=== PATIENT | female | born 1975 | race Caucasian/White ===

== ENCOUNTER 2018-07-16 06:21 | Emergency (ER) | payer OTHER ==
[2018-07-16 06:50] VITALS: BP 150/92; PULSE 90; TEMP 98.6; BMI 25.8
--- NOTE | 2018-07-16 07:49 | PDOC ---
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 On Friday, she reports that "50 pounds" of trays fell onto her right shoulder. She has had severe pain and limited range of motion since then, although she has continued to work. Her pain is unrelieved by Advil, Tylenol, and ice. Vital signs on arrival are notable for HTN: BP 150/92. PCP is Dr. Belcher. REVIEW OF SYSTEMS: GENERAL/CONSTITUTIONAL: No fever or chills. No weakness. No weight change. MUSCULOSKELETAL: See HPI. SKIN: No rash or easy bruising. NEUROLOGIC: No headache, vertigo, loss of consciousness, or loss of sensation. HEMATOLOGIC/LYMPHATIC: No anemia, easy bleeding, or history of blood clots. ALLERGIC/IMMUNOLOGIC: No hives or skin allergy. No latex allergy. PHYSICAL EXAM: GENERAL: The patient is awake, alert, and fully oriented, in no acute distress. LUNGS: Clear to auscultation bilaterally. Normal excursion. No respiratory distress or use of accessory muscles. CV: RRR, S1/S2, no MRG. Cap refill < 2 sec. ABDOMEN: Soft, non-distended, non-tender. EXTREMITIES: Holding right arm. Pain with elevation or abduction of right arm limiting ROM. Right scapular tenderness. NEUROLOGICAL: Normal speech, normal gait. CN II-XII grossly intact. PSYCH: Normal mood, normal affect. SKIN: Warm, dry, normal turgor, no rashes or lesions noted. <Faby Steele - Last Filed: 07/16/18 10:47> - General Chief Complaint: Pain, Acute Stated Complaint: RIGHT ARM PAIN Time Seen by Provider: 07/16/18 07:22 Past History <Brandy Glez - Last Filed: 07/16/18 10:38> - Past Medical History Anemia: No Asthma: No Cancer: No Cardiac Disorders: No CVA: No COPD: No CHF: No Dementia: No Diabetes: No GI Disorders: No Disorders: No HTN: No Hypercholesterolemia: No Kidney Stones: Yes Liver Disease: No Seizures: No Thyroid Disease: No - Surgical History Abdominal Surgery: No Appendectomy: No Cardiac Surgery: No Cholecystectomy: Yes Lung Surgery: No Neurologic Surgery: No Orthopedic Surgery: No - Immunization History Immunization Up to Date: Yes - Suicide/Smoking/Psychosocial Hx Smoking Status: Yes Smoking History: Current every day smoker Have you smoked in the past 12 months: Yes Number of Cigarettes Smoked Daily: 3 Information on smoking cessation initiated: No 'Breaking Loose' booklet given: 04/11/14 Hx Alcohol Use: No Drug/Substance Use Hx: No Substance Use Type: None Hx Substance Use Treatment: No <Faby Steele - Last Filed: 07/16/18 10:47> - Past Medical History Allergies/Adverse Reactions: Allergies Allergy/AdvReac Type Severity Reaction Status Date / Time No Known Drug Allergies Allergy Verified 07/16/18 06:49 Home Medications: Ambulatory Orders Tramadol HCl/Acetaminophen [Ultracet Tablet] 1 each PO Q6H PRN #20 tablet MDD 4 07/16/18 *Physical Exam - Vital Signs Last Vital Signs Temp Pulse Resp BP Pulse Ox 98.6 F 90 20 150/92 99 07/16/18 06:25 07/16/18 06:25 07/16/18 06:25 07/16/18 06:25 07/16/18 06:25 <Brandy Glez - Last Filed: 07/16/18 10:38> - Vital Signs Last Vital Signs Temp Pulse Resp BP Pulse Ox 98.6 F 90 20 150/92 99 07/16/18 06:25 07/16/18 06:25 07/16/18 06:25 07/16/18 06:25 07/16/18 06:25 <Faby Steele - Last Filed: 07/16/18 10:47> ED Treatment Course - Medications Given in the ED: ED Medications Discontinued Medications Generic Name Dose Route Start Last Admin Trade Name Freq PRN Reason Stop Dose Admin Ketorolac Tromethamine 30 mg 07/16/18 08:18 07/16/18 08:26 Toradol Injection - IM 07/16/18 08:19 30 mg ONCE ONE Administration Oxycodone/Acetaminophen 1 combo 07/16/18 10:00 07/16/18 10:03 Percocet 5/325 - PO 07/16/18 10:01 1 combo ONCE ONE Administration <Brandy Glez - Last Filed: 07/16/18 10:38> Medical Decision Making - Medical Decision Making The patient was seen and evaluated in conjunction with midlevel provider under my direct supervision, ancillary studies were reviewed. I agree with the plan as outlined by PROPERTY ANALYST Ivette 43 YOF with right shoulder pain, s/p trays falling against her shoulder NVI. vitals with mild HTN, otherwise f/u primary doctor as it needs recheck XR shoulder with normal alignment, AC joint intact, no clavicle or prox humerus fx contusion/sprain likely, sling for comfort, ROM exercises. OTC pain control as needed. encourage motion and phys activity. DC in stable condition. PCP followup 07/16/18 10:38 <AmarisMylesBrandy Susanrolando - Last Filed: 07/16/18 10:38> - Medical Decision Making 07/16/18 09:45 A/P: 43-year-old female with right shoulder injury. -Xray shoulder 3 views r/o fx, dislocation -Toradol 30mg IM for pain Patient reports pain "tolerable" after Toradol. <Faby Steele - Last Filed: 07/16/18 10:47> *DC/Admit/Observation/Transfer <GlezMylesBrandydevan So - Last Filed: 07/16/18 10:38> - Discharge Dispostion Decision to Admit order: No <Faby Steele - Last Filed: 07/16/18 10:47> Diagnosis at time of Disposition: Shoulder injury Qualifiers: Encounter type: initial encounter Laterality: right Qualified Code(s): S49.91XA - Unspecified injury of right shoulder and upper arm, initial encounter - Discharge Dispostion Disposition: HOME Condition at time of disposition: Stable - Prescriptions Prescriptions: Tramadol HCl/Acetaminophen [Ultracet Tablet] 1 each PO Q6H PRN #20 tablet MDD 4 PRN Reason: Severe Pain - Referrals Referrals: Gissel Muñoz MD [Primary Care Provider] - Jason Ji MD [Staff Physician] - 14 days (Orthopedics - if not improving) - Patient Instructions Printed Discharge Instructions: How to Use a Sling, DI for Shoulder Sprain Additional Instructions: -Use the sling provided, but be sure to take your arm out of the sling and stretch gently every day to prevent frozen shoulder -Take ibuprofen 600mg (3 tablets) every 6 hours with food for no more than one week -Take Tramadol as prescribed for severe breakthrough pain -Follow up with orthopedics if not improving (referral enclosed) -Follow up with your primary care doctor to re-check your blood pressure, which was elevated today -Return here for uncontrolled pain or any other concerning symptoms - Post Discharge Activity Forms/Work/School Notes: Back to Work
[2018-07-16] MEDS ORDERED: KETOROLAC TROMETHAMINE 30 MG/1 ML VIAL IM ONE (08:18)
[2018-07-16] MEDS ORDERED: KETOROLAC TROMETHAMINE 30 MG/1 ML VIAL ONE (08:20)
== END 2018-07-16 10:52 | disposition home or self-care (01) ==
LOC: JER 06:21
PROC: 3E0333Z Introduction of Anti-inflammatory into Peripheral Vein, Percutaneous Approach (ICD-10-PCS; principal; 2018-07-16)
DX: S49.91XA Unspecified injury of right shoulder and upper arm, initial encounter (principal); W20.8XXA Other cause of strike by thrown, projected or falling object, initial encounter; Y93.89 Activity, other specified; Y92.233 Cafeteria of hospital as the place of occurrence of the external cause; Y99.0 Civilian activity done for income or pay; I10 Essential (primary) hypertension
CPT/HCPCS: 73030-TC-RT-FY; 99282-25

== ENCOUNTER 2019-08-09 22:58 | Emergency (ER) | payer OTHER ==
[2019-08-09 23:13] VITALS: TEMP 98.2; BMI 29.8
[2019-08-09] MEDS ORDERED: SODIUM CHLORIDE 1,000 ML IV STA (23:33)
[2019-08-09 23:43] LABS: BASO % 0.5 % (0-2.0); EOS % 3.9 % (0-4.5); HEMATOCRIT 45.1 % (32.4-45.2); HEMOGLOBIN 15.6 GM/dL (10.7-15.3); LYMPH % 31.2 % (8-40); MCH 32.1 pg (25.7-33.7); MCHC 34.5 g/dl (32.0-36.0); MEAN PLT VOLUME 8.1 fl (7.5-11.1); MONO % 6.2 % (3.8-10.2); NEUT % 58.2 % (42.8-82.8); PLATELET COUNT 351 K/MM3 (134-434); RBC 4.85 M/mm3 (3.60-5.2); WHITE BLOOD COUNT 10.1 K/mm3 (4.0-10.0)
[2019-08-09] MEDS ORDERED: ALBUTEROL SO4 2.5/IPRATROPIUM 0.5 INH SOL 3 ML VIAL.NEB. NEB ONE (23:43)
--- NOTE | 2019-08-09 23:45 | PDOC ---
History of Present Illness - General Chief Complaint: Shortness of Breath Stated Complaint: COUGH/SOB Time Seen by Provider: 08/09/19 23:16 - History of Present Illness Initial Comments: 08/09/19 23:48 44 yo F PMH hysterectomy, anxiety, cholecystectomy, p/w CP and SOB. States that she received the flu shot about a week ago, and then was bedbound for 4 days with generalized malaise, sinus congestion, and non-productive cough. She was out eating dinner and then dancing with her daughter when she developed R sided chest pain, similar in quality to intermittent CP she had been experiencing for months but much more intense, "feels like my ribs are broken and it is stabbing my lung", associated with severe cough and nausea without vomiting. Patient also complains that her lower extremities have been slightly swollen over the last week, R worse than L, and has also been having numbness and tingling in her toes. She presents pulse ox of 96% on room air, tachycardic at 125 bpm, BP 125/86. Past History - Past Medical History Allergies/Adverse Reactions: Allergies Allergy/AdvReac Type Severity Reaction Status Date / Time aspirin Allergy Severe Difficulty Verified 08/10/19 00:54 Breathing Home Medications: Ambulatory Orders Tramadol HCl/Acetaminophen [Ultracet Tablet] 1 each PO Q6H PRN #20 tablet MDD 4 07/16/18 Anemia: No Asthma: No Cancer: No Cardiac Disorders: No CVA: No COPD: No CHF: No Dementia: No Diabetes: No GI Disorders: No Disorders: No HTN: No Hypercholesterolemia: No Kidney Stones: Yes Liver Disease: No Seizures: No Thyroid Disease: No - Surgical History Abdominal Surgery: No Appendectomy: No Cardiac Surgery: No Cholecystectomy: Yes Lung Surgery: No Neurologic Surgery: No Orthopedic Surgery: No - Immunization History Immunization Up to Date: Yes - Psycho Social/Smoking Cessation Hx Smoking Status: Yes Smoking History: Current every day smoker Have you smoked in the past 12 months: Yes Number of Cigarettes Smoked Daily: 3 Information on smoking cessation initiated: No 'Breaking Loose' booklet given: 04/11/14 Hx Alcohol Use: Yes Drug/Substance Use Hx: No Substance Use Type: None Hx Substance Use Treatment: No Review of Systems - Review of Systems Constitutional: Yes: Malaise. No: Chills, Diaphoresis, Fever HEENTM: Yes: Nose Congestion. No: Recent change in vision, Double Vision, Throat Pain, Difficulty Swallowing Respiratory: Yes: Cough, Shortness of Breath. No: Wheezing Cardiac (ROS): Yes: Chest Pain (R sided). No: Edema, Irregular Heart Rate ABD/GI: Yes: Nausea. No: Constipated, Diarrhea, Vomiting : No: Burning, Dysuria, Discharge, Frequency, Flank Pain Musculoskeletal: No: Back Pain, Muscle Weakness Neurological: No: Headache, Numbness, Tingling *Physical Exam - Vital Signs Last Vital Signs Temp Pulse Resp BP Pulse Ox 98.2 F 132 H 29 H 218/188 H 100 08/09/19 23:02 08/09/19 23:02 08/09/19 23:02 08/09/19 23:02 08/09/19 23:02 - Physical Exam Comments: 08/10/19 00:51 Gen: well-developed, well-nourished, appears distressed, coughing extremely hard Neuro: AAOX4, CN II-XII intact, FTN intact, EOMI, PERRLA HEENT: atraumatic, normocephalic, dry mucous membranes Neck: trachea midline, supple CV: tachycardic, regular rhythm, no murmurs, rubs, or gallops Pulm: tachypneic, CTA b/l, no wheezing Abd: soft, non-distended, non-tender MSK: full ROM, intact pulses Extr: no edema, no deformities Skin: warm, dry ED Treatment Course - LABORATORY CBC & Chemistry Diagram: 08/09/19 23:30 08/09/19 23:30 - ADDITIONAL ORDERS Additional order review: 08/09/19 23:30 RBC 4.85 MCV 93.0 MCHC 34.5 RDW 13.0 MPV 8.1 Neutrophils % 58.2 Lymphocytes % 31.2 D Monocytes % 6.2 Eosinophils % 3.9 Basophils % 0.5 Medical Decision Making - Medical Decision Making 08/10/19 00:47 Concern for potential PE vs anxiety attack. - CBC, CMP, mag - CXR port, trop - EKG sinus tachycardia at 118bpm - UA/UC - BNP - coags - lipase - CTA chest for r/o PE - reassess 08/10/19 02:11 CTA negative for PE. Will give 0.5 mg Xanax, reassess. 08/10/19 02:51 Patient much improved, likely had a panic attack. Discussed getting in touch with her primary care doctor and a psychiatrist as soon as possible. Will dc home. Discharge - Discharge Information Problems reviewed: Yes Clinical Impression/Diagnosis: Anxiety Condition: Improved Disposition: HOME - Follow up/Referral Referrals: Bianca Belcher MD [Primary Care Provider] - - Patient Discharge Instructions Patient Printed Discharge Instructions: DI for Anxiety -- Adult Additional Instructions: You were seen with chest pain and shortness of breath. Your EKG and labs were unremarkable, and your CTA of your chest did not show a clot in your lungs. Your symptoms responded after receiving Xanax. You most likely had a panic attack. It is very important that you follow up with your primary care physician. Make an appointment within 1 week, and make sure they can get you in touch with a psychiatrist. Return to the ED if you develop worsening symptoms. - Post Discharge Activity Work/Back to School Note: Back to Work
[2019-08-09 23:56] LABS: INR 0.95 (0.83-1.09); PROTHROMBIN TIME (PATIENT) 11.2 SEC (9.7-13.0)
[2019-08-09] MEDS ORDERED: ACETAMINOPHEN 1000 MG/100 ML VIAL (NON FORMULARY) IVPB ONE (23:57)
[2019-08-10] LABS: URINE APPEARANCE CLEAR; URINE BILIRUBIN NEGATIVE (NEGATIVE); URINE COLOR YELLOW; URINE GLUCOSE (UA) NEGATIVE (NEGATIVE); URINE KETONE NEGATIVE (NEGATIVE); URINE LEUK ESTERASE NEGATIVE (NEGATIVE); URINE NITRITE NEGATIVE (NEGATIVE); URINE PROTEIN NEGATIVE (NEGATIVE); URINE UROBILINOGEN 0.2 mg/dL (0.2-1.0)
[2019-08-10 00:05] LABS: BILIRUBIN,TOTAL 0.3 mg/dL (0.2-1); BLOOD UREA NITROGEN 10.4 mg/dL (7-18); CALCIUM 8.8 mg/dL (8.5-10.1); CREATININE 0.8 mg/dL (0.55-1.3); POTASSIUM 4.4 mmol/L (3.5-5.1); TOT PROT 7.3 g/dl (6.4-8.2)
[2019-08-10] MEDS ORDERED: MORPHINE SULFATE 2 MG/ML VIAL ONE ×2 (00:34→01:04)
[2019-08-10 00:36] LABS: N-TERMINAL BNP 26.2 pg/ml (5-125)
[2019-08-10] MEDS ORDERED: MORPHINE SULFATE 2 MG/ML VIAL IVPUSH ONE (01:01)
[2019-08-10] MEDS ORDERED: morphine CARPU-JECT 4 MG/1 ML DISP.SYRIN IVPUSH ONE (01:03)
[2019-08-10 01:07] LABS: LIPASE 164 U/L (73-393)
[2019-08-10] MEDS ORDERED: ALPRAZolam 1 MG TABLET PO PRN ×2 (02:12→02:22)
--- NOTE | 2019-08-10 02:17 | PDOC ---
Documentation entered by Erika Zuñiga SCRIBE, acting as scribe for Jolanta Lozano MD. Jolatna Lozano MD: This documentation has been prepared by the ninaibe, Erika Zuñiga SCRIBE, under my direction and personally reviewed by me in its entirety. I confirm that the documentation accurately reflects all work, treatment, procedures, and medical decision making performed by me. Attending Attestation - Resident Resident Name: Rosina Gomez - ED Attending Attestation I have performed the following: I have examined & evaluated the patient, The case was reviewed & discussed with the resident, I agree w/resident's findings & plan, Exceptions are as noted - HPI HPI: 08/09/19 23:21 44-year-old female presents with chest pain and shortness of breath. She says she got the flu shot and then was bedbound for 4 days with cough and shortness of breath. She presents pulse ox of 96% on room air, tachycardic at 125 bpm She also states that her lower extremities have been slightly swollen over the last week - Physicial Exam PE: 08/09/19 23:37 44-year-old female presents with tachycardia and cough Head normocephalic atraumatic Neck supple, no JVD no bruits Lungs clear to auscultation bilaterally CVS sinus tachycardia Abdomen protuberant, nontender Skin warm and dry Extremities no pitting edema Neuro alert and oriented x3 patient is ambulating to the bathroom currently - Medical Decision Making 08/10/19 01:02 44 yo female who reports 5-6 days of cough and shortness of breath but she is not hypoxic ekg sinus tachycardia 08/10/19 02:13 Repeat blood pressure was 125/86 CT of the chest was negative for pulmonary embolism negative for any infiltrates , the lungs are clear Her troponin was negative, her CBC was unremarkable Chemistries show normal renal function, normal electrolytes and normal LFTs 08/10/19 02:15 08/10/19 02:16 Patient was having severe coughing spasms that have subsided Impression bronchospasm, URI
[2019-08-10] MEDS ORDERED: ALPRAZolam 0.25 MG TABLET ONE (02:23)
[2019-08-10] MEDS ORDERED: ALPRAZolam 1 MG TABLET PO ONE (02:23)
[2019-08-10 04:22] VITALS: BP 131/84; PULSE 96
--- NOTE | 2019-08-10 12:51 | EKG ---
Test Reason : Blood Pressure : / mmHG Vent. Rate : 113 BPM Atrial Rate : 113 BPM P-R Int : 148 ms QRS Dur : 074 ms QT Int : 328 ms P-R-T Axes : 067 050 054 degrees QTc Int : 449 ms POOR DATA QUALITY, INTERPRETATION MAY BE ADVERSELY AFFECTED SINUS TACHYCARDIA POSSIBLE LEFT ATRIAL ENLARGEMENT BORDERLINE ECG WHEN COMPARED WITH ECG OF 11-APR-2014 04:58, VENT. RATE HAS INCREASED BY 58 BPM Confirmed by Sunday Doshi MD ([id number]) on 08/10/2019 12:51:27 PM Referred By: Confirmed By:Sunday Doshi MD
== END 2019-08-10 03:05 | disposition home or self-care (01) ==
LOC: JER 22:58
PROC: 3E0F7GC Introduction of Other Therapeutic Substance into Respiratory Tract, Via Natural or Artificial Opening (ICD-10-PCS; principal; 2019-08-09)
PROC: 3E033NZ Introduction of Analgesics, Hypnotics, Sedatives into Peripheral Vein, Percutaneous Approach (ICD-10-PCS; 2019-08-09)
DX: J98.01 Acute bronchospasm (principal); J06.9 Acute upper respiratory infection, unspecified; Z88.6 Allergy status to analgesic agent; F41.9 Anxiety disorder, unspecified; Z90.49 Acquired absence of other specified parts of digestive tract; Z90.79 Acquired absence of other genital organ(s); Z87.442 Personal history of urinary calculi
CPT/HCPCS: 36415; 71045-TC-FY; 71275-TC; 80053; 81003; 82550; 83690; 83735; 83880; 84484; 85025; 85610; 87086; 93005; 93010; 99283-25; J7030

== ENCOUNTER 2019-08-10 08:31 | Emergency (ER) | payer OTHER ==
[2019-08-10 08:45] VITALS: TEMP 98.7; BMI 27.4
[2019-08-10] MEDS ORDERED: SODIUM CHLORIDE 1,000 ML IV STA (09:30)
[2019-08-10] MEDS ORDERED: morphine CARPU-JECT 4 MG/1 ML DISP.SYRIN IVPUSH ONE (09:31)
--- NOTE | 2019-08-10 09:45 | PDOC ---
History of Present Illness - General Chief Complaint: Pain Stated Complaint: COUGH/ SOB Time Seen by Provider: 08/10/19 09:18 History Source: Patient Exam Limitations: No Limitations - History of Present Illness Initial Comments: 08/10/19 09:45 Patient is a 44F with history of hysterectomy, anxiety, cholecystectomy here today complaining of pain to her right lower chest that onset yesterday after dancing with her daughter at a restaurant. Patient states this pain is worse with inspiration and coughing. She states that she's been coughing with shortness of breath for the past week after getting a flu shot. Endorses associated subjective fevers and chills. Denies nausea and vomiting. Denies headache, neck pain. Denies abdominal pain, dysuria. Endorses tingling in her hands and feet. Patient was evaluated in the ED yesterday for the same complaint. EKG, CTA, CXR , Labs were all reassuring. Patient was diagnosed with anxiety after symptoms improved after getting xanax. Past History - Past Medical History Allergies/Adverse Reactions: Allergies Allergy/AdvReac Type Severity Reaction Status Date / Time aspirin Allergy Severe Difficulty Verified 08/10/19 08:40 Breathing Home Medications: Ambulatory Orders Tramadol HCl/Acetaminophen [Ultracet Tablet] 1 each PO Q6H PRN #20 tablet MDD 4 07/16/18 Anemia: No Asthma: No Cancer: No Cardiac Disorders: No CVA: No COPD: No CHF: No Dementia: No Diabetes: No GI Disorders: No Disorders: No HTN: No Hypercholesterolemia: No Kidney Stones: Yes Liver Disease: No Seizures: No Thyroid Disease: No - Surgical History Abdominal Surgery: No Appendectomy: No Cardiac Surgery: No Cholecystectomy: Yes Lung Surgery: No Neurologic Surgery: No Orthopedic Surgery: No - Immunization History Immunization Up to Date: Yes - Psycho Social/Smoking Cessation Hx Smoking Status: Yes Smoking History: Current every day smoker Have you smoked in the past 12 months: Yes Number of Cigarettes Smoked Daily: 3 Information on smoking cessation initiated: No 'Breaking Loose' booklet given: 04/11/14 Hx Alcohol Use: No Drug/Substance Use Hx: No Substance Use Type: None Hx Substance Use Treatment: No Review of Systems - Review of Systems Able to Perform ROS?: Yes Comments:: 08/10/19 09:56 GENERAL/CONSTITUTIONAL: + fever +chills. No weakness. HEAD, EYES, EARS, NOSE AND THROAT: No change in vision. No sore throat. CARDIOVASCULAR: +chest pain +shortness of breath RESPIRATORY: No cough, wheezing, or hemoptysis. GASTROINTESTINAL: No nausea, vomiting, diarrhea or constipation. GENITOURINARY: No dysuria, frequency, or change in urination. MUSCULOSKELETAL: No joint or muscle swelling or pain. No neck or back pain. SKIN: No rash NEUROLOGIC: No headache, vertigo, loss of consciousness, or change in strength/ sensation. HEMATOLOGIC/LYMPHATIC: No anemia, easy bleeding, or history of blood clots. ALLERGIC/IMMUNOLOGIC: No hives or skin allergy. *Physical Exam - Vital Signs Last Vital Signs Temp Pulse Resp BP Pulse Ox 98.7 F 103 H 26 H 116/77 98 08/10/19 08:41 08/10/19 08:41 08/10/19 08:41 08/10/19 08:41 08/10/19 08:41 - Physical Exam Comments: 08/10/19 09:57 GENERAL: Awake, alert, and fully oriented CHEST: Tender to palpation along lower ribs on right side, no visible bruising HEAD: No signs of trauma, normocephalic, atraumatic EYES: PERRLA, EOMI, sclera anicteric, conjunctiva clear ENT: Auricles normal inspection, hearing grossly normal, nares patent, oropharynx clear without exudates. Moist mucosa NECK: Normal ROM, supple, no lymphadenopathy, JVD, or masses LUNGS: No distress, speaks full sentences, clear to auscultation bilaterally HEART: Regular rate and rhythm, normal S1 and S2, no murmurs, rubs or gallops, peripheral pulses normal and equal bilaterally. ABDOMEN: Soft, nontender, normoactive bowel sounds. No guarding, no rebound. No masses EXTREMITIES: Normal inspection, Normal range of motion, no edema. No clubbing or cyanosis. NEUROLOGICAL: Cranial nerves II through XII grossly intact. Normal speech, normal gait, no focal sensorimotor deficits SKIN: Warm, Dry, normal turgor, no rashes or lesions noted. ED Treatment Course - LABORATORY CBC & Chemistry Diagram: 08/10/19 10:40 08/10/19 10:40 - RADIOLOGY Radiology Studies Ordered: Category Date Time Status CHEST PA & LAT [RAD] Stat Radiology 08/10/19 09:30 Ordered Medical Decision Making - Medical Decision Making 08/10/19 09:58 Patient is 44F with history of anxiety, cholecystectomy, hysterectomy here today with chest pain. Vitals notable for tachycardia and tachypnea. Lungs clear. Patient had full work up last night, ruled out PE. Will re-evaluate with cxr, cardiac labs, ekg. Will treat with toradol. 08/10/19 10:47 EKG shows nsr with no st elevation/depression. Normal axis. Normal intervals. One t wave inversion isolated to V3. 08/10/19 12:14 CBC normal CMP normal Troponin negative. CXR normal. Patient reassessed, pain has improved. Patient states that she's ready to go home. Discharge - Discharge Information Problems reviewed: Yes Clinical Impression/Diagnosis: Chest pain Condition: Good Disposition: HOME - Admission No - Follow up/Referral Referrals: Gissel Muñoz MD [Primary Care Provider] - - Patient Discharge Instructions Patient Printed Discharge Instructions: DI for Atypical Chest Pain Additional Instructions: Please follow up with your primary care doctor in the next few days. Please take the naproxen as directed for pain. Your next dose will be due tonight. Please do not take motrin or ibuprofen if you are taking napoxen. Please return to the ED if you have any new, worsening or concerning symptoms, especially fever, increasing pain and shortness of breath. - Post Discharge Activity Work/Back to School Note: Back to Work
--- NOTE | 2019-08-10 10:12 | PDOC ---
Attending Attestation - Resident Resident Name: VasuellenBlake - ED Attending Attestation I have performed the following: I have examined & evaluated the patient, The case was reviewed & discussed with the resident, I agree w/resident's findings & plan, Exceptions are as noted - HPI HPI: 08/10/19 10:10 44yo F hx cholecystectomy, hysterectomy, anxiety p/w 2 weeks of right lower chest pain, worse with movement, inspiration, palpation. Pain has been much worse since last night after she was dancing with her daughter. Pt was seen here for the same, had a PE w/u including CTA which was negative. Pt reports the sxs started in the setting of a cough that began 1.5 weeks ago. Denies associated dizziness, diaphoresis, weakness/numbness, N/V, SOB, abd pain, LE edema. She has been taking advil at home with minimal relief. Pt returned to the ED this morning as she was unable to sleep 2/2 pain. Was given xanax and morphine prior to discharge last night. Denies other trauma. - Physicial Exam PE: 08/10/19 10:40 GENERAL: Awake, alert, and fully oriented, in no acute distress EYES: PERRLA, EOMI, sclera anicteric, conjunctiva clear ENT: Oropharynx clear without exudates. Moist mucosa NECK: Normal ROM, supple, no lymphadenopathy, JVD, or masses LUNGS: Breath sounds equal, clear to auscultation bilaterally. No wheezes, and no crackles HEART: Regular rate and rhythm, normal S1 and S2, no murmurs, rubs or gallops. + ttp along 9th/10th intercostal muscles. No masses palpated around or on breast. ABDOMEN: Soft, nontender, normoactive bowel sounds. No guarding, no rebound. No masses EXTREMITIES: Normal range of motion, no edema. No cords, erythema, or tenderness NEUROLOGICAL: Normal speech, cranial nerves intact, equal stregnth and sensation b/l SKIN: Warm, Dry, normal turgor, no rashes or lesions noted. - Medical Decision Making 08/10/19 10:44 44yo F presents to the ED for 2nd time in 1 day for reproducible, positional rib pain, started in setting of coughing 2 weeks ago, worse after dancing last night. Highly consistent with musculoskeletal pain, rib strain, especially with negative CTA and trop yesterday EKG with no significant changes WIll rpt trop, CXR, and treat pain with toradol. Pt states allergy to ASA is throat closing but has been taking advil almost daily 08/10/19 12:26 Labs wnl Patient is feeling significantly better after Toradol, was able to sleep for 2 hours in the emergency department. She is eager to go home. Will prescribe naproxen for pain control. Discussed with patient the importance of not taking Advil, Motrin, ibuprofen or any other NSAID medications while she is taking naproxen. She is clinically stable for discharge home. I discussed the physical exam findings, ancillary test results and final diagnoses with the patient. I answered all of the patient's questions. The patient was satisfied with the care received and felt comfortable with the discharge plan and treatment plan. The patient will call their primary care physician within 24 hours to arrange follow-up and will return to the Emergency Department with any new, persistent or worsening symptoms. Heart Score/ECG Review #1 08/10/19 10:46 Twelve-lead EKG was performed and reviewed by me. Normal sinus rhythm, rate 77. Normal axis and intervals. No ST elevations. T wave inversions in 3 and V3. When compared to EKG done last night T wave inversion in V3 it is, however this could be due to lead placement. In isolation is not concerning.
[2019-08-10] MEDS ORDERED: KETOROLAC TROMETHAMINE 15 MG/ML VIAL IVPUSH ONE (10:23)
[2019-08-10 10:56] LABS: BASO % 1.2 % (0-2.0); EOS % 2.8 % (0-4.5); HEMATOCRIT 43.4 % (32.4-45.2); HEMOGLOBIN 14.8 GM/dL (10.7-15.3); LYMPH % 18.6 % (8-40); MCH 31.6 pg (25.7-33.7); MCHC 34.1 g/dl (32.0-36.0); MEAN CELL VOLUME 92.9 fl (80-96); MEAN PLT VOLUME 8.1 fl (7.5-11.1); MONO % 6.3 % (3.8-10.2); NEUT % 71.1 % (42.8-82.8); PLATELET COUNT 302 K/MM3 (134-434); RBC 4.67 M/mm3 (3.60-5.2); RDW 13.2 % (11.6-15.6); WHITE BLOOD COUNT 12.3 K/mm3 (4.0-10.0)
[2019-08-10] MEDS ORDERED: KETOROLAC TROMETHAMINE 15 MG/ML VIAL ONE (10:56)
[2019-08-10 11:12] LABS: INR 1.08 (0.83-1.09); PROTHROMBIN TIME (PATIENT) 12.7 SEC (9.7-13.0)
[2019-08-10 11:34] LABS: ALBUMIN 3.7 g/dl (3.4-5.0); BILIRUBIN,TOTAL 0.6 mg/dL (0.2-1); BLOOD UREA NITROGEN 13.2 mg/dL (7-18); CALCIUM 8.5 mg/dL (8.5-10.1); CREATININE 0.6 mg/dL (0.55-1.3); TOT PROT 6.7 g/dl (6.4-8.2)
[2019-08-10 12:57] VITALS: BP 107/72; PULSE 78
--- NOTE | 2019-08-11 11:03 | EKG ---
Test Reason : Blood Pressure : / mmHG Vent. Rate : 081 BPM Atrial Rate : 081 BPM P-R Int : 148 ms QRS Dur : 084 ms QT Int : 402 ms P-R-T Axes : 005 019 008 degrees QTc Int : 466 ms NORMAL SINUS RHYTHM NORMAL ECG WHEN COMPARED WITH ECG OF 09-AUG-2019 23:00, NO SIGNIFICANT CHANGE WAS FOUND Confirmed by CONNIE DÍAZ MD ([id number]) on 08/11/2019 11:03:28 AM Referred By: Confirmed By:CONNIE DÍAZ MD
== END 2019-08-10 12:57 | disposition home or self-care (01) ==
LOC: JER 08:31
PROC: 3E0337Z Introduction of Electrolytic and Water Balance Substance into Peripheral Vein, Percutaneous Approach (ICD-10-PCS; principal; 2019-08-10)
PROC: 3E0333Z Introduction of Anti-inflammatory into Peripheral Vein, Percutaneous Approach (ICD-10-PCS; 2019-08-10)
DX: R07.89 Other chest pain (principal); F41.9 Anxiety disorder, unspecified; Z88.6 Allergy status to analgesic agent; Z90.49 Acquired absence of other specified parts of digestive tract; Z90.79 Acquired absence of other genital organ(s)
CPT/HCPCS: 36415; 71046-TC-FY; 80053; 82550; 82553; 83735; 84484; 85025; 85610; 93005; 93010; 99283-25; J7030

== ENCOUNTER 2020-01-05 07:26 | Emergency (ER) | payer OTHER ==
[2020-01-05 07:39] VITALS: BP 151/100; PULSE 80; TEMP 98; BMI 26.6
--- NOTE | 2020-01-05 08:09 | PDOC ---
History of Present Illness - General Chief Complaint: Ear Problem Stated Complaint: R EAR SWELLING Time Seen by Provider: 01/05/20 07:31 - History of Present Illness Initial Comments: CHIEF COMPLAINT: R ear/neck pain HISTORY OF PRESENT ILLNESS: 44 yo F with no PMH presents to ED with acute onset pain to R ear since this morning. Patient reports hx of "really bad ear infections" when she was younger but does not remember the last time she had one. She describes the pain as a "pain inside the ear, like it's throbbing or tingling" and that the pain radiates down the right side of her face/neck as well. No recent travel or sick contacts. PAST MEDICAL HISTORY: Denies past medical history FAMILY HISTORY: Denies SOCIAL HISTORY: Denies tobacco, alcohol, illicit drug use. SURGICAL HISTORY: Denies ALLERGIES: No known drug allergies REVIEW OF SYSTEMS General/Constitutional: Denies fever or chills. Denies weakness, weight change. HEENT: Right ear/facial/neck pain. Denies change in vision. Denies sore throat. Cardiovascular: Denies chest pain or shortness of breath. Respiratory: Denies cough, wheezing, or hemoptysis. Gastrointestinal: Denies nausea, vomiting, diarrhea or constipation. Denies rectal bleeding. Genitourinary: Denies dysuria, frequency, or change in urination. Musculoskeletal: Denies joint or muscle swelling or pain. Denies neck or back pain. Skin and breasts: Denies rash or easy bruising. Neurologic: Denies headache, vertigo, loss of consciousness, or loss of sensation. Psychiatric: Denies depression or anxiety. PHYSICAL EXAM General Appearance: Well-appearing, appropriately dressed. No apparent distress. HEENT: Erythema and mild swelling to R ear with TTP to mastoid process and along C2 dermatome. EOMI, PERRLA, normal ENT inspection, normal voice, TMs normal, pharynx normal. No conjunctival pallor. No photophobia, scleral icterus. Neck: Supple. Trachea midline. No tenderness, rigidity, carotid bruit, stridor, lymphadenopathy, or thyromegaly. Respiratory/Chest: Lungs CTAB. No shortness of breath, chest tenderness, respiratory distress, accessory muscle use. No crackles, rales, rhonchi, stridor, wheezing, dullness Cardiovascular: RRR. S1, S2. No JVD, murmur, bradycardia, tachycardia. Vascular Pulses: Dorsalis-Pedis (R): 2+, Dorsalis-Pedis (L): 2+ Gastrointestinal/Abdominal: Normal bowel sounds. Abdomen soft, non-distended. No tenderness or rebound tenderness. No organomegaly, pulsatile mass, guarding, hernia, hepatomegaly, splenomegaly. Lymphatic: No adenopathy, tenderness. Musculoskeletal/Extremities: Normal inspection. FROM of all extremities, normal capillary refill. Pelvis Stable. No CVA tenderness. No tenderness to extremities, pedal edema, swelling, erythema or deformity. Integumentary: Appropriate color, dry, warm. 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 Fully oriented, alert. Appropriate mood/affect. Motor strength 5/5. No appreciable EOM palsy, facial droop or sensory deficit. Past History - Past Medical History Allergies/Adverse Reactions: Allergies Allergy/AdvReac Type Severity Reaction Status Date / Time aspirin Allergy Severe Difficulty Verified 01/05/20 07:29 Breathing naproxen [From Aleve] Allergy Verified 01/05/20 07:30 Home Medications: Ambulatory Orders Diclofenac Sodium 75 mg PO BID #20 tablet. 01/05/20 Valacyclovir HCl [Valtrex] 1,000 mg PO TID #21 tablet 01/05/20 Anemia: No Asthma: No Cancer: No Cardiac Disorders: No CVA: No COPD: No CHF: No Dementia: No Diabetes: No GI Disorders: No Disorders: No HTN: No Hypercholesterolemia: No Kidney Stones: Yes Liver Disease: No Seizures: No Thyroid Disease: No - Surgical History Abdominal Surgery: No Appendectomy: No Cardiac Surgery: No Cholecystectomy: Yes Lung Surgery: No Neurologic Surgery: No Orthopedic Surgery: No - Immunization History Immunization Up to Date: Yes - Psycho Social/Smoking Cessation Hx Smoking Status: Yes Smoking History: Unknown if ever smoked Have you smoked in the past 12 months: Yes Number of Cigarettes Smoked Daily: 3 'Breaking Loose' booklet given: 04/11/14 Hx Alcohol Use: No Drug/Substance Use Hx: No Substance Use Type: None Hx Substance Use Treatment: No *Physical Exam - Vital Signs Last Vital Signs Temp Pulse Resp BP Pulse Ox 98 F 80 18 151/100 99 01/05/20 07:30 01/05/20 07:30 01/05/20 07:30 01/05/20 07:30 01/05/20 07:30 ED Treatment Course - RADIOLOGY Radiology Studies Ordered: Category Date Time Status TEMPORAL BONES CT W/O CONTRAST [CT] Stat CT Scan 01/05/20 07:57 Ordered Medical Decision Making - Medical Decision Making 01/05/20 08:09 44 yo F with no PMH presents to ED with acute onset pain to R ear since this morning. Given significant hx of AOM, concern for mastoiditis vs shingles. -temporal bone CT r/o mastoiditis, if negative likely shingles given distribution of pain over single facial dermatome. 01/05/20 10:30 CT negative. Patient c/o that pain has become a very heavy burning sensation to her left ear. Likely shingles. Will dc with Valtrex and pain control. Discharge - Discharge Information Problems reviewed: Yes Clinical Impression/Diagnosis: Shingles Qualifiers: Herpes zoster complications: unspecified herpes zoster complication Qualified Code(s): B02.8 - Zoster with other complications Condition: Stable Disposition: HOME - Admission No - Additional Discharge Information Prescriptions: Diclofenac Sodium 75 mg PO BID #20 tablet. Valacyclovir HCl [Valtrex] 1,000 mg PO TID #21 tablet - Follow up/Referral Referrals: Gissel Muñoz MD [Primary Care Provider] - - Patient Discharge Instructions - Post Discharge Activity Work/Back to School Note: Back to Work
[2020-01-05] MEDS ORDERED: valACYclovir HCL 1000 MG TABLET PO ONE (10:02)
[2020-01-05] MEDS ORDERED: KETOROLAC TROMETHAMINE 30 MG/1 ML VIAL IM ONE (10:05)
[2020-01-05] MEDS ORDERED: KETOROLAC TROMETHAMINE 30 MG/1 ML VIAL ONE (10:50)
[2020-01-05] MEDS ORDERED: valACYclovir HCL 500 MG TABLET (FP) ONE (10:51)
== END 2020-01-05 11:01 | disposition home or self-care (01) ==
LOC: JER 07:26
PROC: 3E0233Z Introduction of Anti-inflammatory into Muscle, Percutaneous Approach (ICD-10-PCS; principal; 2020-01-05)
DX: B02.8 Zoster with other complications (principal); Z88.8 Allergy status to other drugs, medicaments and biological substances
CPT/HCPCS: 70480-TC; 99285-25

== ENCOUNTER 2020-08-04 03:21 | Emergency (ER) | payer OTHER ==
[2020-08-04 03:41] VITALS: TEMP 98.4; BMI 25.9
--- OUTSIDE RECORDS SUMMARY | 2020-08-04 03:44 | XMS ---
:1975 Author Organization [facility] Support Name Relationship Address Phone MONIKA HEAD DAUGHTER [address] [place] [address] [facility] Unavailable [address] [place] [address] DAWIT PRYOR [address] [place] [address] Re-disclosure Warning The records that you are about to access may contain information from federally- assisted alcohol or drug abuse programs. If such information is present, then the following federally mandated warning applies: This information has been disclosed to you from records protected by federal confidentiality rules (42 CFR part 2). The federal rules prohibit you from making any further disclosure of this information unless further disclosure is expressly permitted by the written consent of the person to whom it pertains or as otherwise permitted by 42 CFR part 2. A general authorization for the release of medical or other information is NOT sufficient for this purpose. The Federal rules restrict any use of the information to criminally investigate or prosecute any alcohol or drug abuse patient.The records that you are about to access may contain highly sensitive health information, the redisclosure of which is protected by Article 27-F of the [facility] Public Health law. If you continue you may haveaccess to information: Regarding HIV / AIDS; Provided by facilities licensed or operated by the [facility] Office of Mental Health; or Provided by the [facility] Office for People With Developmental Disabilities. If such information is present, then the following [facility] mandated warning applies: This information has been disclosed to you from confidential records which are protected by state law. State law prohibits you from making any further disclosure of this information without the specific written consent of the person to whom it pertains, or as otherwise permitted by law. Any unauthorized further disclosure in violation of state law may result in a fine or skilled nursing sentence or both. A general authorization for the release of medical or other information is NOT sufficient authorization for further disclosure. Insurance Providers Payer name Policy type Policy ID Covered Covered libertarian's Policy P delvin / Coverage libertarian ID relationship to He Inf ormation type he [facility] [id number] - [id number] [facility]
[2020-08-04] MEDS ORDERED: ACETAMINOPHEN 500 MG TABLET (FP) PO ONE (04:09)
--- NOTE | 2020-08-04 04:17 | PDOC ---
History of Present Illness - General Chief Complaint: Shortness of Breath Stated Complaint: DIFFICULTY BREATHING Past History - Medical History Allergies/Adverse Reactions: Allergies Allergy/AdvReac Type Severity Reaction Status Date / Time aspirin Allergy Severe Difficulty Verified 08/04/20 03:34 Breathing naproxen [From Aleve] Allergy Verified 08/04/20 03:34 Home Medications: Ambulatory Orders Diclofenac Sodium 75 mg PO BID #20 tablet. 01/05/20 Valacyclovir HCl [Valtrex] 1,000 mg PO TID #21 tablet 01/05/20 Anemia: No Asthma: No Cancer: No Cardiac Disorders: No CVA: No COPD: No CHF: No Dementia: No Diabetes: No GI Disorders: No Disorders: No HTN: No Hypercholesterolemia: No Kidney Stones: Yes Liver Disease: No Seizures: No Thyroid Disease: No - Surgical History Abdominal Surgery: No Appendectomy: No Cardiac Surgery: No Cholecystectomy: Yes Lung Surgery: No Neurologic Surgery: No Orthopedic Surgery: No - Reproductive History Is Patient Now?: No - Immunization History Immunization Up to Date: Yes - Psycho-Social/Smoking History Smoking Status: Yes Smoking History: Never smoked Have you smoked in the past 12 months: No Number of Cigarettes Smoked Daily: 3 Information on smoking cessation initiated: No 'Breaking Loose' booklet given: 04/11/14 - Substance Abuse Hx (Audit-C & DAST Scrn) How often the patient has a drink containing alcohol: Never Score: In Men: 4 or > Positive; In Women: 3 or > Positive: 0 Screen Result (Pos requires Nsg. Audit-10AR): Negative In the last yr the pt used illegal drug/Rx for NonMed reason: No Score: Yes response is considered Positive: 0 Screen Result (Positive result requires Nsg. 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 Denies sick contacts, travel, covid test or hx, Took advil in afternoon and evening. No other meds. Tachycardic -PO fluids 08/04/20 06:19 HR improved 80s Flu negative Feels better dc Discharge - Discharge Information Problems reviewed: Yes Clinical Impression/Diagnosis: Cough, Rhinorrhea Condition: Improved Disposition: HOME - Admission No - Follow up/Referral Referrals: Gissel Muñoz MD [Primary Care Provider] - - Patient Discharge Instructions Patient Printed Discharge Instructions: [facility]-Coronavirus Instructions, R-[facility] COVID-19 Isolation Protocol Additional Instructions: You have been seen in the Emergency Department for your body aches, cough, and chills. Your flu test is negative. You most likely have a viral syndrome. At this time it's most important to stay hydrated, Take Tylenol as directed on the medication bottle every 6 hours to help with your fatigue and body aches, but do not exceed 4g of Tylenol a day. Follow-up with your primary care doctor within 1 week. Return to the Emergency Department immediately if you experience chest pain, difficulty breathing, passing out, or any other new or worsening symptom. - Post Discharge Activity Work/Back to School Note: Back to Work
[2020-08-04] MEDS ORDERED: ACETAMINOPHEN 325 MG TABLET (FP) ONE (04:20)
--- NOTE | 2020-08-04 05:24 | PDOC ---
Attending Attestation - Resident Resident Name: LesArianne - ED Attending Attestation I have performed the following: I have examined & evaluated the patient, The case was reviewed & discussed with the resident, I agree w/resident's findings & plan, Exceptions are as noted - HPI HPI: 08/10/20 19:42 See resident HPI - Physicial Exam PE: 08/10/20 19:42 Well appearning, NAD, AOx3 Oropharynx unremarkable Neck supple, no tender LAD Tachycardic on initial interaction Normal wob, no wheeze, crackles Abd soft, nt WEI, NFD - Medical Decision Making 08/10/20 19:44 Viral syndrome, JUICE, URI hydrate, flu swab re-eval dispo per clinical course, likely dc with symptomatic support Discharge - Discharge Information Problems reviewed: Yes Clinical Impression/Diagnosis: Cough, Rhinorrhea Condition: Improved Disposition: HOME - Follow up/Referral Referrals: Gissel Muñoz MD [Primary Care Provider] - - Patient Discharge Instructions Patient Printed Discharge Instructions: [facility]-Coronavirus Instructions, R- [facility] COVID-19 Isolation Protocol Additional Instructions: You have been seen in the Emergency Department for your body aches, cough, and chills. Your flu test is negative. You most likely have a viral syndrome. At this time it's most important to stay hydrated, Take Tylenol as directed on the medication bottle every 6 hours to help with your fatigue and body aches, but do not exceed 4g of Tylenol a day. Follow-up with your primary care doctor within 1 week. Return to the Emergency Department immediately if you experience chest pain, difficulty breathing, passing out, or any other new or worsening symptom. - Post Discharge Activity Work/Back to School Note: Back to Work
[2020-08-04 05:59] VITALS: BP 140/94; PULSE 86
== END 2020-08-04 06:30 | disposition home or self-care (01) ==
LOC: JER 03:21
DX: R05 Cough (principal); J34.89 Other specified disorders of nose and nasal sinuses
CPT/HCPCS: 87804; 99283-25; C9803; U0003

== ENCOUNTER 2021-04-27 08:22 | Emergency (ER) | payer OTHER ==
[2021-04-27 08:28] VITALS: BP 133/90; PULSE 108; TEMP 99; BMI 29.1
[2021-04-27] MEDS ORDERED: ACETAMINOPHEN 325 MG TABLET (FP) PO ONE (09:22)
[2021-04-27] MEDS ORDERED: ALBUTEROL SO4 2.5/IPRATROPIUM 0.5 INH SOL 3 ML VIAL.NEB. NEB ONE ×3 (09:22→09:49)
[2021-04-27] MEDS ORDERED: guaiFENesin/D-METHORPHAN HB 10 ML UNIT-DOSE CUPS PO ONE (09:22)
[2021-04-27] MEDS ORDERED: guaiFENesin/D-METHORPHAN HB 10 ML UNIT-DOSE CUPS ONE (09:48)
[2021-04-27] MEDS ORDERED: ACETAMINOPHEN 325 MG TABLET (FP) ONE (09:48)
== END 2021-04-27 10:59 | disposition home or self-care (01) ==
LOC: JER 08:22 → JERFT 08:22 → JER 10:59
PROC: 3E0F7GC Introduction of Other Therapeutic Substance into Respiratory Tract, Via Natural or Artificial Opening (ICD-10-PCS; principal; 2021-04-27)
DX: R05 Cough (principal)
CPT/HCPCS: 71046-TC-FY; 99284-25; C9803; U0003; U0005

== ENCOUNTER 2021-07-11 10:00 | Emergency (ER) | payer OTHER ==
[2021-07-11 10:12] VITALS: BP 164/98; PULSE 93; TEMP 97.8; BMI 27.4
[2021-07-11] MEDS ORDERED: methylPREDNISolone NA SUCC 125 MG/2 ML VIAL IVPUSH ONE (11:22)
[2021-07-11] MEDS ORDERED: diphenhydrAMINE HCL 50 MG CAPSULE PO ONE (11:23)
[2021-07-11] MEDS ORDERED: SODIUM CHLORIDE 0.9% 500 ML INFUS.BAG IV ONE (11:24)
[2021-07-11] MEDS ORDERED: ONDANSETRON *ODT* 4 MG TABLET SL ONE (11:24)
[2021-07-11] MEDS ORDERED: diphenhydrAMINE HCL 25 MG CAPSULE (FP) PO ONE (11:28)
[2021-07-11] MEDS ORDERED: ONDANSETRON *ODT* 4 MG TABLET ONE (11:28)
[2021-07-11] MEDS ORDERED: methylPREDNISolone NA SUCC 125 MG/2 ML VIAL ONE (11:29)
[2021-07-11 12:34] LABS: BASO % 0.6 % (0-2.0); EOS % 1.5 % (0-4.5); HEMATOCRIT 44.9 % (32.4-45.2); HEMOGLOBIN 15.6 GM/dL (10.7-15.3); LYMPH % 23.8 % (8-40); MCH 32.7 pg (25.7-33.7); MCHC 34.7 g/dl (32.0-36.0); MEAN CELL VOLUME 94.2 fl (80-96); MEAN PLT VOLUME 8.1 fl (7.5-11.1); MONO % 5.6 % (3.8-10.2); NEUT % 68.5 % (42.8-82.8); PLATELET COUNT 287 10^3/uL (134-434); RBC 4.77 M/mm3 (3.60-5.2); RDW 13.2 % (11.6-15.6)
[2021-07-11 12:51] LABS: ALBUMIN 4.1 g/dl (3.4-5.0); CALCIUM 9.4 mg/dL (8.5-10.1)
[2021-07-11 12:52] LABS: BLOOD UREA NITROGEN 11.7 mg/dL (7-18)
[2021-07-11 12:54] LABS: CREATININE 0.7 mg/dL (0.55-1.3)
[2021-07-11 12:56] LABS: BILIRUBIN,TOTAL 0.5 mg/dL (0.2-1); TOT PROT 7.4 g/dl (6.4-8.2)
== END 2021-07-11 14:12 | disposition home or self-care (01) ==
LOC: JER 10:00
PROC: 3E033GC Introduction of Other Therapeutic Substance into Peripheral Vein, Percutaneous Approach (ICD-10-PCS; principal; 2021-07-11)
DX: T50.Z95A Adverse effect of other vaccines and biological substances, initial encounter (principal)
CPT/HCPCS: 36415; 80053; 85025; 99284-25; Q0162

== ENCOUNTER 2022-06-24 08:20 | Emergency (ER) | payer OTHER ==
[2022-06-24 08:26] VITALS: BP 151/94; PULSE 113; RESP 18; TEMP 98.1; BMI 27.4
== END 2022-06-24 11:29 | disposition home or self-care (01) ==
LOC: JER 08:20 → JERFT 08:20
DX: M25.531 Pain in right wrist (principal)
CPT/HCPCS: 73110-TC-RT-FY; 73130-TC-RT-FY; 99283-25

== ENCOUNTER 2022-10-02 08:22 | Observation (INO) | payer OTHER ==
[2022-10-02 09:06] LABS: BASO % 0.4 % (0-2.0); EOS % 1.2 % (0-4.5); LYMPH % 14.1 % (8-40); MCH 31.5 pg (25.7-33.7); MCHC 33.4 g/dl (32.0-36.0); MEAN CELL VOLUME 94.2 fl (80-96); MEAN PLT VOLUME 8.3 fl (7.5-11.1); MONO % 5.2 % (3.8-10.2); NEUT % 79.1 % (42.8-82.8); PLATELET COUNT 310 10^3/uL (134-434); RBC 4.77 M/mm3 (3.60-5.2); RDW 13.1 % (11.6-15.6); WHITE BLOOD COUNT 9.8 K/mm3 (4.0-10.0)
[2022-10-02] MEDS ORDERED: NITROGLYCERIN 2% OINTMENT - 1GM PACKET TD ONE ×3 (09:08→09:19)
[2022-10-02 09:21] LABS: CALCIUM 9.2 mg/dL (8.5-10.1)
[2022-10-02 09:22] LABS: ALBUMIN 3.8 g/dl (3.4-5.0); BLOOD UREA NITROGEN 13.5 mg/dL (7-18)
[2022-10-02 09:25] LABS: CREATININE 0.7 mg/dL (0.55-1.3)
[2022-10-02 09:26] LABS: BILIRUBIN,TOTAL 0.4 mg/dL (0.2-1); TOT PROT 6.7 g/dl (6.4-8.2)
[2022-10-02] MEDS ORDERED: ONDANSETRON *ODT* 4 MG TABLET ONE (09:47)
[2022-10-02] MEDS ORDERED: METOPROLOL TARTRATE 25 MG TABLET (FP) PO ONE (09:50)
[2022-10-02 09:54] LABS: N-TERMINAL BNP 93.9 pg/ml (5-125)
[2022-10-02] MEDS ORDERED: METOPROLOL TARTRATE 25 MG TABLET (FP) ONE (10:05)
[2022-10-02] MEDS ORDERED: ALBUTEROL SO4 0.083% IH SOL 2.5 MG/3 ML VIAL.NEB. NEB PRN (13:15)
[2022-10-02] MEDS ORDERED: ACETAMINOPHEN 325 MG TABLET (FP) PO PRN (13:15)
[2022-10-02] MEDS ORDERED: PANTOPRAZOLE 40 MG TABLET PO ONE (14:46)
[2022-10-02] MEDS: PANTOPRAZOLE 40 MG TABLET PO SCH (14:59)
[2022-10-02] MEDS ORDERED: ACETAMINOPHEN 325 MG TABLET (FP) ONE (20:58)
[2022-10-02] MEDS ORDERED: ATORVASTATIN CA 40 MG TABLET (FP) PO SCH (22:00)
[2022-10-02] MEDS ORDERED: ATORVASTATIN CA 40 MG TABLET (FP) ONE (22:24)
[2022-10-03 04:08] VITALS: BMI 31.9
[2022-10-03 07:47] LABS: HEMATOCRIT 40.4 % (32.4-45.2); MCH 32.4 pg (25.7-33.7); MCHC 34.6 g/dl (32.0-36.0); MEAN CELL VOLUME 93.5 fl (80-96); MEAN PLT VOLUME 8.9 fl (7.5-11.1); PLATELET COUNT 264 10^3/uL (134-434); RBC 4.32 M/mm3 (3.60-5.2); RDW 12.8 % (11.6-15.6); WHITE BLOOD COUNT 6.7 K/mm3 (4.0-10.0)
[2022-10-03 08:11] LABS: CALCIUM 8.6 mg/dL (8.5-10.1)
[2022-10-03 08:12] LABS: ALBUMIN 3.3 g/dl (3.4-5.0); BLOOD UREA NITROGEN 9.4 mg/dL (7-18); IRON SERUM 97 ug/dL (50-175); TOTAL IRON BINDING CAPACITY 315 ug/dL (250-450)
[2022-10-03 08:14] LABS: CREATININE 0.5 mg/dL (0.55-1.3)
[2022-10-03 08:15] LABS: BILIRUBIN,TOTAL 0.7 mg/dL (0.2-1)
[2022-10-03] MEDS: PANTOPRAZOLE 40 MG TABLET PO SCH (09:21)
[2022-10-03] MEDS ORDERED: NEBIVOLOL 5 MG TABLET (FP) PO SCH (10:00)
[2022-10-03 15:37] VITALS: BP 127/80; PULSE 77; RESP 18; TEMP 97.5
== END 2022-10-03 19:05 | disposition home or self-care (01) ==
LOC: JER 08:22 → JERBED 10:30 → UNDOADMOB 10:30 → INTOOBSV 10:30 → JERBED 10-03 02:47 → J4W 10-03 02:47 → JERBED 10-03 09:38 → J4W 10-03 09:38 → J4S 10-03 13:50 → J4W 10-03 13:59
PROVIDERS: ADMIT Family Medicine; ATTEND Family Medicine
DX: I24.9 Acute ischemic heart disease, unspecified (principal); I10 Essential (primary) hypertension; Z88.8 Allergy status to other drugs, medicaments and biological substances; E66.8 Other obesity; Z68.31 Body mass index [BMI] 31.0-31.9, adult; F17.210 Nicotine dependence, cigarettes, uncomplicated; R06.09 Other forms of dyspnea
CPT/HCPCS: 36415; 71045-TC-FY; 80053; 80061; 83036; 83540; 83550; 83880; 84443; 84484; 84703; 85025; 85027; 85379; 93005; 93010; 93306-TC; 93351; 93970-TC; 99285-25; G0378

== ENCOUNTER 2023-02-26 19:03 | Emergency (ER) | payer OTHER ==
[2023-02-26 19:09] VITALS: BP 159/100; PULSE 95; RESP 18; TEMP 97.9; BMI 28.3
[2023-02-26] MEDS ORDERED: ACETAMINOPHEN 1000 MG/100 ML BAG IVPB ONE (20:03)
[2023-02-26] MEDS ORDERED: KETOROLAC TROMETHAMINE 30 MG/1 ML VIAL IVPUSH ONE (20:16)
[2023-02-26] MEDS ORDERED: METHOCARBAMOL 500 MG TABLET PO ONE (20:28)
[2023-02-26] MEDS ORDERED: ACETAMINOPHEN 500 MG TABLET (FP) PO ONE (20:39)
[2023-02-26 20:48] LABS: BASO % 0.8 % (0-2.0); EOS % 1.6 % (0-4.5); HEMATOCRIT 42.2 % (32.4-45.2); HEMOGLOBIN 14.7 GM/dL (10.7-15.3); LYMPH % 28.1 % (8-40); MCH 32.6 pg (25.7-33.7); MCHC 34.8 g/dl (32.0-36.0); MEAN CELL VOLUME 93.7 fl (80-96); MEAN PLT VOLUME 7.8 fl (7.5-11.1); MONO % 7.5 % (3.8-10.2); PLATELET COUNT 296 10^3/uL (134-434); RDW 13.1 % (11.6-15.6); WHITE BLOOD COUNT 8.9 K/mm3 (4.0-10.0)
[2023-02-26 20:54] LABS: POTASSIUM 3.9 mmol/L (3.5-5.1)
[2023-02-26 20:57] LABS: CALCIUM 9.3 mg/dL (8.5-10.1)
[2023-02-26 20:58] LABS: ALBUMIN 4.1 g/dl (3.4-5.0); BLOOD UREA NITROGEN 14.8 mg/dL (7-18)
[2023-02-26 21:01] LABS: CREATININE 0.7 mg/dL (0.55-1.3)
[2023-02-26 21:03] LABS: BILIRUBIN,TOTAL 0.4 mg/dL (0.2-1); TOT PROT 7.1 g/dl (6.4-8.2)
[2023-02-26] MEDS ORDERED: ACETAMINOPHEN 325 MG TABLET (FP) ONE (21:12)
[2023-02-26] MEDS ORDERED: METHOCARBAMOL 500 MG TABLET ONE (21:12)
== END 2023-02-26 23:04 | disposition home or self-care (01) ==
LOC: JER 19:03
DX: M79.604 Pain in right leg (principal); M79.601 Pain in right arm; R51.9 Headache, unspecified; M54.2 Cervicalgia; R20.2 Paresthesia of skin; M25.551 Pain in right hip; M54.31 Sciatica, right side
CPT/HCPCS: 36415; 70450-TC; 72125-TC; 72131-TC; 80053; 85025; 99284-25